=== PATIENT | female | born 1955 | race American Indian/Alaskan Native ===

== ENCOUNTER 2018-04-13 14:40 | Outpatient (CLI) | payer BC, OTHER | END 2018-04-13 14:41 | disposition home or self-care (01) | LOC: LABHHL 14:40 | PROVIDERS: ATTEND Surgery | DX: N63.10 Unspecified lump in the right breast, unspecified quadrant (principal) | CPT/HCPCS: 88305; 88341; 88342; 88361 ==

== ENCOUNTER 2018-04-27 13:15 | Outpatient (CLI) | payer BC ==
--- NOTE | 2018-04-27 15:24 | Ultrasound Report ---
ULTRASOUND GUIDED NEEDLE CORE BIOPSY OF A RIGHT AXILLARY LYMPH NODE WITH CLIP PLACEMENT : 04/27/18 13:15:00 CLINICAL: Right breast cancer and a suspicious right axillary lymph node. COMPARISON :08/12/18 right mammogram. FINDINGS: The procedure was explained to the patient and informed consent was obtained. Ultrasound demonstrated a suspicious lymph node with focal cortical thickening at 3.6 mm. The skin in the axilla was prepped with Betadine and anesthetized with 1% lidocaine. Ultrasound guided needle core biopsy of the lymph node was performed through a small dermatotomy using 2% lidocaine with epinephrine for deep anesthesia and a 18-gauge Achieve biopsy device. 2 samples were obtained and placed in formalin. A clip was deployed within the lymph node. Hemostasis was achieved with minimal pressure and a sterile dressing was applied. The patient tolerated the procedure well and there were no apparent complications. She was discharged in good condition and was given instructions for wound care and followup. IMPRESSION: Uncomplicated ultrasound-guided needle core biopsy of a right lymph node with clip placement.
== END 2018-04-27 13:16 | disposition home or self-care (01) ==
LOC: SPVWC 13:15
PROVIDERS: ATTEND Surgery
DX: R59.9 Enlarged lymph nodes, unspecified (principal)
CPT/HCPCS: 38505; 76942; 88305

== ENCOUNTER 2018-05-17 06:01 | Day surgery (SDC) | payer BC ==
[2018-05-17] MEDS ORDERED: NACL BACTERIOSTATIC INFILTRATI ONE (06:41)
[2018-05-17] MEDS ORDERED: ZOFRAN IV PRN (07:13)
[2018-05-17] MEDS ORDERED: TORADOL IV PRN (07:13)
[2018-05-17] MEDS ORDERED: DILAUDID IV PRN (07:13)
[2018-05-17] MEDS ORDERED: MARCAINE 0.5% 30 ML INFILTRATI ONE (07:19)
[2018-05-17] MEDS ORDERED: XYLOCAINE 1% 20 mL ONE ×2 (07:20→07:25)
[2018-05-17] MEDS ORDERED: SUBLIMAZE ONE ×2 (07:20→08:11)
[2018-05-17] MEDS ORDERED: MARCAINE 0.25% INFILTRATI ONE (07:24)
[2018-05-17] MEDS ORDERED: LACTATED RINGERS 1,000 ML ONE ×3 (07:24→10:04)
[2018-05-17] MEDS ORDERED: HEPARIN 10,000 UNITS/10 ML ONE (07:24)
[2018-05-17] MEDS ORDERED: NACL 0.9% 100 ML ONE ×2 (07:25→10:03)
--- NOTE | 2018-05-17 07:31 | Anesthesia Consultation ---
Anesthesia Consult and Med Hx Date of service: 05/17/18 (Right partial mastectomy with port) - Airway Anesthetic Teeth Evaluation: Dentures ROM Head & Neck: Adequate Mental/Hyoid Distance: Adequate Mallampati Class: Class I Intubation Access Assessment: Good - Pulmonary Exam CTA: Yes - Cardiac Exam Cardiac Exam: No Murmur - Pre-Operative Health Status ASA Pre-Surgery Classification: ASA2 Proposed Anesthetic Plan: General Nerve Block: P Major Block - Pulmonary Hx Smoking: Yes (1/2 PPD SINCE HIGHSCHOOL) - Cardiovascular System Hx Hypertension: Yes (6 YEARS) Hx Cardia Arrhythmia: Yes (slow heart rate, cleared by PCP, patient states Echo, Stress test in 02/24 [place]) - Central Nervous System Hx Psychiatric Problems: Yes - Gastrointestinal Hx Gastroesophageal Reflux Disease: Yes (very controlled with medication, none in weeks) - Other Systems Hx Alcohol Use: No Hx Substance Use: No Hx Cancer: Yes - Additional Comments Anesthesia Medical History Comments: No history of anesthesia problems for gallbladder and breast bx surgeries
[2018-05-17] MEDS ORDERED: NEURONTIN PO NR (08:00)
[2018-05-17] MEDS ORDERED: ANCEF/STERILE WATER 2 GM/20 ML IV NR (08:00)
[2018-05-17] MEDS ORDERED: PEPCID IV NR (08:00)
[2018-05-17] MEDS ORDERED: LACTATED RINGERS 1,000 ML IV SCH (08:00)
[2018-05-17] MEDS ORDERED: VERSED IV NR (08:00)
[2018-05-17] MEDS ORDERED: XYLOCAINE MPF 2% ONE (08:11)
[2018-05-17] MEDS ORDERED: DIPRIVAN 10 MG/ML IV ONE (08:11)
[2018-05-17] MEDS ORDERED: ROBINUL ONE (08:23)
[2018-05-17] MEDS ORDERED: ePHEDrine 50 MG/5 ML-0.9% NACL IV ONE (08:29)
[2018-05-17] MEDS ORDERED: HEPARIN 10,000 UNITS/10 ML IV ONE (08:35)
[2018-05-17] MEDS ORDERED: NACL 0.9% IV ONE (08:35)
[2018-05-17] MEDS ORDERED: ZOFRAN ONE (09:34)
[2018-05-17] MEDS ORDERED: REGLAN ONE (09:34)
--- NOTE | 2018-05-17 09:41 | Fluoroscopy Report ---
Chest in OR: Tube placement. A left port has been introduced into the jugular vein. The tip lies in the superior aspect of the right atrium. Diffuse bilateral patchy pulmonary opacities are noted. No pneumothorax. Questionable mild cardiac enlargement. Impression: Port line positioning as indicated with no apparent complication.
[2018-05-17] MEDS ORDERED: NEO SYNEPHRINE ONE (10:03)
--- NOTE | 2018-05-17 10:37 | Operative Report ---
Operative Report Operative Report: Date of operation: 05/17/18 Reoperative diagnosis: Right-sided breast cancer Postoperative diagnosis: Same as above Procedure performed: Placement of left IJ vein Port-A-Cath with ultrasound guidance, fluoroscopy Surgeon: Ella Gallegos DO Fruit Bar Maker: Natalya Baker MD Anesthesia: General, pectoral block Findings: On intraoperative CXR - good placement of port and no PTX EBL: 25cc Complications: none Disposition: stable to PACU HPI and indication: Patient is a 63-year-old female who was recently diagnosed with right-sided breast cancer. The patient is seen by Dr. Baker and oncology as an outpatient and deemed a candidate for chemotherapy. All of the risks associated with the procedure were discussed with the patient including but not limited to pneumothorax, infection, bleeding, malpositioned port, injury to other structures. The patient understands and all questions were answered. Consent was signed and placed on chart. Procedure in detail: The patient was identified in the preoperative area, taken back to operating room, placed on operating table in supine position. After anesthesia was induced both arms were tucked and upper chest and neck were prepped and draped in usual sterile fashion. A timeout was performed. The was placed in Trendelenburg position. The left subclavian vein was visualized with ultrasound guidance and was accessed on the first stick. There was sluggish return of dark red, nonpulsatile blood. The wire was threaded under fluoroscopy but continued to coil and could not be directed into the superior vena cava despite the use of a glidewire. The needle was removed and pressure held. Hemostasis was achieved. The left internal jugular vein was visualized using ultrasound guidance and was accessed on the first stick. There was return of dark red, nonpulsatile blood. The glidewire was threaded without resistance and visualized on fluoroscopy to be in good position. The needle was removed and the wire secured to the drapes with a hemostat. Using a 15 blade, an incision was made in the left upper chest and dissection carried down through the skin and subcutaneous tissue using Bovie electrocautery. Hemostasis was achieved along the way. A pocket for the port was then created bluntly and with electrocautery. The catheter was flushed and tunneled from the pocket to the wire. A breakaway catheter/dilator sheath then inserted over the wire under fluoroscopy, and the wire and dilator removed. The catheter was then inserted through the breakaway catheter which was then removed. The catheter sat flush under the skin. Using continuous fluoroscopy, the catheter was pulled back until the tip was visualized in the right atrium. The catheter was then cut to size and the port attached in the usual fashion. The port was then sutured into place to the pre-pectoral fascia using 2-0 Vicryl interrupted sutures. The wound was irrigated and hemostasis ensured. The port was tested with heparinized saline and there was return of blood and it flushed easily. The port was then instilled with 3000 units of heparin. The deep dermal layer was then closed with interrupted 3-0 Vicryl stitches. The skin incisions were closed with 4-0 Monocryl subcuticular stitches and skin glue. Intraoperative chest x-ray did show good positioning of the port, without evidence of pneumothorax. At the end of this part of the case, all sponge, instrument, sharp counts were correct 2. The patient remained in stable condition and Dr. Baker took over for Left partial mastectomy with SLN biopsy.
--- NOTE | 2018-05-17 10:52 | Short Stay Summary ---
Short Stay Documentation Date of service: 05/17/18 - History H&P: obtained from office - Allergies and Medications Current Medications: Allergies No Known Allergies Allergy (Verified 05/11/18 11:46) Home Medications Medication Instructions Recorded Confirmed Last Taken Type Acetaminophen [Tylenol Arthritis] 650 mg PO BID 05/11/18 05/17/18 05/16/18 History Buspirone HCl [busPIRone] 15 mg PO DAILY 05/11/18 05/17/18 05/17/18 04:15 History Folic Acid [Folvite] 1 mg PO DAILY 05/11/18 05/17/18 05/16/18 History Lisinopril/Hydrochlorothiazide 1 each PO DAILY 05/11/18 05/17/18 05/16/18 History [Zestoretic 10-12.5 mg Tablet] Methotrexate(Dose Weekly Only) 7.5 mg PO DAILY 05/11/18 05/17/18 05/10/18 History Omeprazole 20 mg PO DAILY 05/11/18 05/17/18 05/17/18 04:15 History amLODIPine [Norvasc] 5 mg PO DAILY 05/11/18 05/17/18 05/17/18 04:15 History 5 MG HYDROcodone/APAP 5-325 [Iola 1 each PO Q6HR PRN #30 tablet 05/17/18 Unknown Rx 5/325] Active Medications Hydromorphone HCl (Dilaudid) 0.5 mg IV Q10MIN PRN PRN Reason: Pain , Severe (7-10) Stop: 05/17/18 15:00 Lactated Ringer's (Lactated Ringers) 1,000 mls @ 100 mls/hr IV DIRECT JORGE L Last Admin: 05/17/18 07:41 Dose: 100 mls/hr Ketorolac Tromethamine (Toradol) 30 mg IV ONCE PRN PRN Reason: Pain, Moderate (4-6) Stop: 05/17/18 15:00 Midazolam HCl (Versed) 2 mg IV PREOP NR Stop: 05/17/18 23:59 Ondansetron HCl (Zofran) 4 mg IV ONCE PRN PRN Reason: Nausea And Vomiting Stop: 05/17/18 12:00 - Brief post op/procedure progress note Date of procedure: 05/17/18 Pre-op diagnosis: Right breast cancer Post-op diagnosis: same Procedure: Right partial mastectomy with SLNB Anesthesia: GETA Findings: Right partial mastectomy radiograph specimen with clip present; 2 SLNs Surgeon: KARINA MOSES Channel Sales Manager: CLARE FLYNN Estimated blood loss: minimal Pathology: list (right partial mastectomy; SLNs) Specimen disposition: to lab Condition: stable - Disposition Condition at discharge: Good Disposition: DC-01 TO HOME OR SELFCARE Short Stay Discharge Plan Activity: other (no heavy lifting) Diet: regular Wound: other (keep incision clean and dry; may shower in 24 hours; no baths, pools or lakes; do not rub or scrub incision; wear breast binder) Follow up with: TRACEY GUZMAN MD [Primary Care Provider] - 7 Days KARINA MOSES MD [Staff Physician] - 7 Days Prescriptions: HYDROcodone/APAP 5-325 [Iola 5/325] 1 each PO Q6HR PRN #30 tablet PRN Reason: Pain
--- NOTE | 2018-05-17 10:57 | Post Anesthesia Evaluation ---
- Post Anesthesia Evaluation Patient Participated: Yes Airway Patent: Yes Stable Respiratory Function: Yes Nausea/Vomiting: No Temp > 96.8F: Yes Pain Manageable: Yes Adequeate Hydration: Yes Anesthesia Complications: No
--- NOTE | 2018-05-17 11:02 | Operative Report ---
Operative Report Operative Report: Date of Service: May 17, 2018 Preoperative diagnosis: Right breast cancer of the upper outer quadrant Postoperative diagnosis: Same Procedure: Right partial mastectomy of the upper outer quadrant and SLNB Surgeon: Natalya Baker MD Tannery Gummer: Iris Gallegos DO Anesthesia: General Findings: Right breast mass and clip present within radiograph specimen; x2 SLNs Complications: None EBL: Minimal Disposition: PACU in good condition Indications for operative procedure: This is a 63 year old lady with newly diagnosed right breast cancer of the upper outer quadrant, Stage II [id number] triple negative. Recommendations are to proceed with a right partial mastectomy and SLNB. Patient wished to proceed with the above procedure. She understands the role of adjuvant chemotherapy. Procedure in detail: Anesthesia placed right pectoral muscle block. Patient was then taken to the operating room. Gen. anesthesia was administered. Left port was placed by Dr. Gallegos. The right nipple was injected with radioisotope. The right breast and axilla were prepped and draped in the normal sterile operative fashion. Timeout was performed. Gamma probe was inserted into the axilla. The area of hot spot was identified. Known cancer was at the 11:00 position axillary tail. A right axillary incision was made with a 15 blade knife with dissection taken down to the subcutaneous tissues. The axillary fascia was opened with the Bovie cautery. Gamma probed inserted into the axilla and 2 SLNS were identified and dissected free. All remaining counts were less than 10% of the highest count. Lymph nodes were sent to pathology for permanent processing. Hemostasis was obtained in the right axillary cavity. Axillary cavity was appropriately irrigated and suctioned. Hemostasis was noted. Attention was then taken towards the right breast. Ultrasound was used to maribell area of incsion with appropriate margins. Known 2 cm breast cancer mass at the 11:00 position axillary tail and same incision for axillary lymph node was used. First began raising of the superior flap with dissection take down to the pectoralis muscle, followed by raising of the medial flap, lateral flap and inferior flap with all flaps taken down to the pectoralis muscle. The breast area of concern was appropriately removed posteriorly from the pectoralis muscle with the aid of the Bovie cautery. Specimen was marked and then sent to pathology and radiology; radiograph specimen with clip and mass present. Breast cavity was irrigated and hemostasis was obtained. The posterior deep breast tissues were approximated and closed using interrupted 3-0 Vicryl. The axillary fascia was approximated and closed using interrupted 3-0 Vicryl. The subcutaneous tissues were approximated and closed using interrupted 3-0 Vicryl followed by closing of the skin with a running 4-0 Monocryl and skin affix. The patient tolerated surgery very well and she was awaken from anesthesia without any complication and transported to PACU in good condition.
--- NOTE | 2018-05-17 11:20 | Mammography Report ---
SPECIMEN RADIOGRAPH RIGHT BREAST: 05/17/18 06:01:00 CLINICAL: Surgical excision of known cancer. FINDINGS: A mass with a biopsy clip is identified within the specimen. IMPRESSION: Excision of the targeted lesion.
[2018-05-17] MEDS ORDERED: NORCO 5/325 PO PRN (11:41)
[2018-05-17 12:28] VITALS: BP 111/65
== END 2018-05-17 12:50 | disposition home or self-care (01) ==
LOC: OR 06:01
PROVIDERS: ATTEND Surgery
DX: C50.411 Malignant neoplasm of upper-outer quadrant of right female breast (principal); I10 Essential (primary) hypertension; K21.9 Gastro-esophageal reflux disease without esophagitis; F17.210 Nicotine dependence, cigarettes, uncomplicated; Z98.890 Other specified postprocedural states
CPT/HCPCS: 19302; 36415; 36561; 64450; 76098; 76942; 77001; 78800; 84132; 88307; 88341; 88342; 88361; A9541; C1769; C1788; J0690; J1644; J2250; J2370; J2405; J2704; J2765; J3010; J7120; 88333

== ENCOUNTER 2020-10-11 08:41 | Outpatient (CLI) | payer MEDICARE ==
--- NOTE | 2020-10-11 09:42 | Mammography Report ---
DIGITAL DIAGNOSTIC MAMMOGRAM WITH CAD CONVENTIONAL, 10/11/2020 CLINICAL INFORMATION / INDICATION: Routine evaluation, Z85.3 PERSONAL HX OF BREAST CA TECHNIQUE: Digital bilateral mammographic imaging was performed. This examination was interpreted with the benefit of Computer-aided Detection analysis. COMPARISON: 10/10/2019 and prior FINDINGS: Breast Density: There are scattered areas of fibroglandular density. No dominant mass, suspicious calcifications or architectural distortion in the right breast. Right surgical changes are stable. Radiation therapy changes are seen on the right. Multiple grouping s of calcifications are again seen bilaterally without change in most areas. However, a small group o f microcalcifications in the 12:00 position of the left breast, mid depth, shows gradual increase in number. IMPRESSION: Increasing grouped microcalcifications on the left Follow up recommendation: Left magnification views BI-RADS Category 0: Incomplete. Needs additional imaging evaluation and/or prior mammograms for lester bullock. A "normal" or negative report should not discourage follow up or biopsy of a clinically significant f inding. A written summary of these findings will be mailed to the patient. The patient will be entered into a mammography reporting system which will generate a reminder letter for the patient's next appointmen t at the appropriate interval. According to the [employer], yearly mammograms are recommended starting at age 40 and continuing as long as a woman is in good health. Breast MRI is recommended for women with an annabelle roximately 20-25% or greater lifetime risk of breast cancer, including women with a strong family his tory of breast or ovarian cancer and women who have been treated for Hodgkin's disease. Signer Name: Sandeep Woodward MD Signed: 10/11/2020 9:38 AM Workstation Name: [id number]
== END 2020-10-11 08:42 | disposition home or self-care (01) ==
LOC: SPVWC 08:41
PROVIDERS: ATTEND Surgery
DX: N64.89 Other specified disorders of breast (principal); Z85.3 Personal history of malignant neoplasm of breast; Z98.890 Other specified postprocedural states
CPT/HCPCS: 77066

== ENCOUNTER 2021-04-23 09:23 | Outpatient (CLI) | payer MEDICARE ==
--- NOTE | 2021-04-23 10:05 | Mammography Report ---
DIGITAL DIAGNOSTIC MAMMOGRAM WITH CAD CONVENTIONAL, 04/23/2021 CLINICAL INFORMATION / INDICATION: Patient presents for six-month follow-up of probably benign calcif ications in the left breast. ABNORMAL MAMMO R92.8 TECHNIQUE: Digital left mammographic imaging was performed. Magnification views were obtained. This examination was interpreted with the benefit of Computer-aided Detection analysis. COMPARISON: Prior mammogram 10/11/2020 FINDINGS: Breast Density: There are scattered areas of fibroglandular density. A small group of calcifications in the 12:00 position of the left breast, middle depth, measuring up to approximately 7 mm has slightly increased compared with the prior examination. Additional benign-a ppearing calcifications in the left breast are unchanged. IMPRESSION: 1. A small group of calcifications in the 12:00 left breast is considered low suspicion for malignanc y. Because this has slightly increased compared with prior mammogram, stereotactic biopsy is recommen ded. Follow up recommendation: Biopsy BI-RADS Category 4: Suspicious for Malignancy. A "normal" or negative report should not discourage follow up or biopsy of a clinically significant f inding. A written summary of these findings will be mailed to the patient. The patient will be entered into a mammography reporting system which will generate a reminder letter for the patient's next appointmen t at the appropriate interval. According to the [employer], yearly mammograms are recommended starting at age 40 and continuing as long as a woman is in good health. Breast MRI is recommended for women with an annabelle roximately 20-25% or greater lifetime risk of breast cancer, including women with a strong family his tory of breast or ovarian cancer and women who have been treated for Hodgkin's disease. Signer Name: Savita To MD Signed: 04/23/2021 10:00 AM Workstation Name: [id number]
== END 2021-04-23 09:24 | disposition home or self-care (01) ==
LOC: SPVWC 09:23
PROVIDERS: ATTEND Surgery
DX: R92.8 Other abnormal and inconclusive findings on diagnostic imaging of breast (principal)